=== PATIENT | female | born 1960 | race African-American/Black ===

== ENCOUNTER 2016-04-26 21:37 | Emergency (ER) | payer MEDICAID, OTHER ==
[~2016-04-26] VITALS: Ht 160 cm; Wt 54.4 kg
[~2016-04-26 21:37] MED LIST: ACYCLOVIR400 MG ORAL; ALBUTEROL SULF8.5 GM INH; AMOXICILLIN500 MG ORAL; AZITHROMYCIN500 MG ORAL; BACTRIM DS TAB1 EAC1 ORAL; BACTRIM-DS1 EA ORAL; CELEXA20 MG ORAL; CEPHALEXIN500 MG ORAL; CIPROFLOXACIN500 M2 ORAL; DOXYCYCLINE MO100 MG ORAL; GLIPIZIDE5 MG ORAL; GLUCOPHAGE500 MG ORAL; GLUCOTROL5 MG ORAL; KEFLEX500 MG ORAL; LEVAQUIN750 MG ORAL; LISINOPRIL10 MG ORAL; LISINOPRIL5 MG ORAL; METFORMIN HCL500 M1 ORAL; METRONIDAZOLE500 MG ORAL; MICONAZOLE NITR30 GM TOPIC; NORCO 5-325 TA1 EACH ORAL; PREDNISONE20 MG ORAL; PROMETHAZINE-C118 M1 ORAL; PYRIDIUM200 M1 ORAL; QUETIAPINE FUM200 MG ORAL; TRAMADOL HCL50 MG ORAL; TRAZODONE HCL100 MG ORAL; VICODIN 5-5001 EACH ORAL
--- NOTE | 2016-04-26 21:55 | Emergency Room Report ---
History of Present Illness General Chief Complaint: Dyspnea/Respdistress Source: Patient Present Illness HPI Is a 55-year-old female with a history diabetes, hypertension, asthma/COPD. Said she quit smoking 2 days ago. She presents with chief complaint of coughing congestion. Onset for last 5 days. Cough is at the sputum. She has runny nose and congestion. Has sore throat. Worse with exertion. Better with rest. Worse with smoking. She also complaining of left foot pain from her diabetes neuropathy. Said she has an ulcer. Denies any other complaint. Allergies: Coded Allergies: No Known Allergies (Unverified , 06/28/12) Patient History Past Medical History: see triage record, old chart reviewed, DM, HTN, asthma, COPD Past Surgical History: other Pertinent Family History: none Social History: Reports: smoking Now: No Immunizations: other Reviewed Nursing Documentation: PMH: Agreed, PSxH: Agreed Nursing Documentation-PMH Past Medical History: No History, Except For Hx Hypertension: Yes Hx Asthma: Yes Hx COPD: Yes Hx Diabetes: Yes - neuropathy, ulcer on toe Hx Cancer: No Hx Gastrointestinal Problems: No Hx Neurological Problems: No Review of Systems Eye: Denies: blurred vision, eye pain ENT: Denies: ear pain, nose congestion, throat swelling Respiratory: Reports: cough, shortness of breath, sputum, wheezing Cardiovascular: Denies: chest pain, palpitations Gastrointestinal: Denies: abdominal pain, diarrhea, nausea, vomiting Musculoskeletal: Denies: back pain, joint pain Skin: Denies: rash Neurological: Denies: headache, numbness Endocrine: Denies: increased thirst, increased urine Hematologic/Lymphatic: Denies: easy bruising All Other Systems: negative except mentioned in HPI Physical Exam Vital Signs Date Time Temp Pulse Resp B/P Pulse Ox O2 Delivery O2 Flow Rate FiO2 04/26/16 21:42 98.2 114 18 142/82 95 Room Air vitals with tachycardia and hypertension Sp02 EP Interpretation: reviewed, normal General Appearance: well appearing, alert, mild distress Head: normocephalic, atraumatic Eyes: bilateral eye EOMI, bilateral eye PERRL ENT: hearing grossly normal, normal pharynx Neck: full range of motion, supple, no meningismus Respiratory: chest non-tender, decreased breath sounds, accessory muscle use, wheezing Cardiovascular #1: regular rate, rhythm, no murmur Gastrointestinal: normal bowel sounds, non tender, no mass, no organomegaly, no bruit, non-distended Musculoskeletal: back normal, gait/station normal, normal range of motion, other - Left foot: She has callus on her second toe. No infection. No ulcer. Neurologic: alert, oriented x3 Psychiatric: mood/affect normal Skin: warm/dry Medical Decision Making Diagnostic Impression: Primary Impression: COPD exacerbation Additional Impressions: Diabetic neuropathy Qualified Codes: E11.42 - Type 2 diabetes mellitus with diabetic polyneuropathy Encounter for medication refill UTI (lower urinary tract infection) Cocaine abuse ER Course Patient presents with COPD exacerbation. Most likely secondary to a viral illness. Because her diabetes and smoking history, will put her on antibiotics. No evidence of sepsis, pneumonia, PE, dissection. Wheezing resolved after breathing treatment. She is out of her inhalers and a pressure medication. We'll refill it. Chest X-Ray Diagnostic Results EP Interpretation: Yes Findings: no consolidation, no effusion, no pneumothorax, no acute cardiopulmonary disease Number of Views: 1 Last Vital Signs Date Time Temp Pulse Resp B/P Pulse Ox O2 Delivery O2 Flow Rate FiO2 04/26/16 21:42 98.2 114 18 142/82 95 Room Air Status: improved Disposition: HOME, SELF-CARE Condition: Stable Scripts Azithromycin* (ZITHROMAX*) 250 Mg Tablet 250 MG ORAL DAILY, #6 TAB 0 Refills Take two tablets by mouth today, then take one tablet by mouth daily for four days Prov: ZOE CARRIZALES M.D. 04/26/16 Prednisone* (PREDNISONE*) 20 Mg Tablet 60 MG ORAL DAILY, #12 TAB Prov: ZOE CARRIZALES M.D. 04/26/16 Lisinopril* (LISINOPRIL*) 10 Mg Tablet 10 MG ORAL DAILY, #30 TAB Prov: ZOE CARRIZALESDSantino 04/26/16 Fluticasone/Salmeterol (Advair 500-50 Diskus) 1 Each Blst.w.dev 1 PUFF INH EVERY 12 HOURS, #1 EA Prov: ZOE CARRIZALES M.D. 04/26/16 Albuterol Sulfate* (ALBUTEROL SULFATE MDI*) 8.5 Gm Hfa.aer.ad 2 PUFF INH Q4H Y for cough/wheezing, #1 EA 0 Refills Prov: ZOE CARRIZALES M.D. 04/26/16 Patient Instructions: Chronic Obstructive Pulmonary Disease Exacerbation Additional Instructions: Followup with your Dr. 2 to 3 days. Return if symptom worsen. ZOE CARRIZALES M.D. Apr 26, 2016 21:55
[2016-04-26 21:58] VITALS: BP 142/82
[2016-04-26] MEDS ORDERED: Albuterol ud Inhalation HHN ONE (22:00)
[2016-04-26] MEDS ORDERED: PredniSONE 20mg tab ORAL ONE (22:00)
[2016-04-26] MEDS ORDERED: Ipratropium 0.02% Inh Soln 2.5ml UD HHN ONE (22:00)
[2016-04-26 22:57] LABS: APPEARANCE,URINE CLEAR; KETONES,URINE 1+ (NEGATIVE); LEUKOCYTE ESTERASE ,URINE 2+ (NEGATIVE); NITRITE,URINE NEGATIVE (NEGATIVE); PH,URINE 6 (4.5-8.0); PROTEIN,URINE 1+ (NEGATIVE); UROBILINOGEN,URINE 1 MG/DL (0.0-1.0)
[2016-04-26] MEDS ORDERED: ALBUTEROL SULF8.5 GM INH (22:57)
[2016-04-26] MEDS ORDERED: PREDNISONE20 MG ORAL (22:57)
[2016-04-26] MEDS ORDERED: ADVAIR 500-501 EACH INH (22:57)
[2016-04-26] MEDS ORDERED: AZITHROMYCIN250 MG ORAL (22:57)
[2016-04-26] MEDS ORDERED: LISINOPRIL10 MG ORAL (22:57)
[2016-04-26 23:10] LABS: BACTERIA,URINE FEW /HPF; SQUAMOUS EPITHELIAL CELL,UR FEW /LPF (NONE/OCC)
[2016-04-26 23:21] VITALS: BP 138/76
--- NOTE | 2016-04-27 10:19 | Diagnostic Imaging Report ---
Indication: Dyspnea Comparison: 09/07/14 A single view chest radiograph was obtained. Findings: Osteopenic. Heart is normal in size. Aorta is ectatic. Lungs are clear. Impression: No acute disease
== END 2016-04-26 23:21 | disposition home or self-care (01) ==
LOC: EMR 22:23
DX: J44.1 Chronic obstructive pulmonary disease with (acute) exacerbation (principal); E11.42 Type 2 diabetes mellitus with diabetic polyneuropathy; Z76.0 Encounter for issue of repeat prescription; N39.0 Urinary tract infection, site not specified; F14.10 Cocaine abuse, uncomplicated; I10 Essential (primary) hypertension; Z87.891 Personal history of nicotine dependence
CPT/HCPCS: 71010; 80300; 81003; 94640; 94664; 99284

== ENCOUNTER 2016-08-16 21:56 | Emergency (ER) | payer OTHER ==
[~2016-08-16] VITALS: Ht 157.5 cm; Wt 63.5 kg
[~2016-08-16 21:56] MED LIST changes: +ADVAIR 500-501 EACH INH; +AZITHROMYCIN250 MG ORAL
[2016-08-16] MEDS ORDERED: cefTRIAXone 1 GM in NS 55 ML IV ONE (22:15)
[2016-08-16] MEDS ORDERED: Albuterol ud Inhalation HHN ONE (22:15)
[2016-08-16] MEDS ORDERED: Solu-MEDROL 125mg Inj IVP ONE (22:15)
[2016-08-16] MEDS ORDERED: Ipratropium 0.02% Inh Soln 2.5ml UD HHN ONE (22:15)
[2016-08-16 22:38] LABS: BASOPHILS % (AUTO) 1.4 % (0.0-2.0); EOSINOPHILS % (AUTO) 1.1 % (0.0-3.0); MEAN CORPUSCULAR HEMOGLOBIN 30.1 PG (27.0-31.0); MEAN CORPUSCULAR HGB CONC 34.1 G/DL (32.0-36.0); MEAN CORPUSCULAR VOLUME 88 FL (80-99); MEAN PLATELET VOLUME 9.1 FL (6.5-10.1); MONOCYTES % (AUTO) 9.6 % (1.0-10.0); PLATELET COUNT 223 K/UL (150-450); RED BLOOD COUNT 5.34 M/UL (4.20-5.40); WHITE BLOOD COUNT 7.5 K/UL (4.8-10.8)
[2016-08-16 22:54] LABS: APPEARANCE,URINE CLEAR; KETONES,URINE 1+ (NEGATIVE); LEUKOCYTE ESTERASE ,URINE 1+ (NEGATIVE); NITRITE,URINE NEGATIVE (NEGATIVE); PH,URINE 5 (4.5-8.0); PROTEIN,URINE 2+ (NEGATIVE); UROBILINOGEN,URINE 1 MG/DL (0.0-1.0)
[2016-08-16 22:58] LABS: ALANINE AMINOTRANSFERASE 13 U/L (3-33); ALBUMIN/GLOBULIN RATIO 1.3 (1.0-2.7); ANION GAP 16 (5-15); ASPARTATE AMINO TRANSFERASE 15 U/L (5-40); CALCIUM 9.4 mg/dL (8.6-10.2); CARBON DIOXIDE 24 mEQ/L (20-30); CHLORIDE 102 mEQ/L (98-107); CREATININE 0.7 mg/dL (0.5-0.9); GLOMERULAR FILTRATION RATE > 60 mL/min (>60); HEMOLYSIS 5; POTASSIUM 3.7 mEQ/L (3.4-4.9); SODIUM 142 mEQ/L (135-145); TOTAL PROTEIN 6.9 g/dL (6.6-8.7)
[2016-08-16 23:02] LABS: BACTERIA,URINE MODERATE /HPF; SQUAMOUS EPITHELIAL CELL,UR MANY /LPF (NONE/OCC)
--- NOTE | 2016-08-16 23:14 | Emergency Room Report ---
History of Present Illness General Chief Complaint: Dyspnea/Respdistress Source: Patient Present Illness HPI Is a 55 year female with a history of COPD. She still smokes. Also history of cocaine abuse and smoking. She presents with chief complaint of shortness of breath and coughing. Also having subjective fever and chills. Coughing is productive of whitish and yellowish sputum. Onset for last week. Out of her albuterol. Hard time breathing. She is here with her brother who is also. No nausea no vomiting. No chest pain. Worse with exertion. Worse with coughing. Worse with lying flat. Allergies: Coded Allergies: No Known Allergies (Unverified , 06/28/12) Patient History Past Medical History: see triage record, old chart reviewed, COPD Past Surgical History: none Pertinent Family History: none Social History: Reports: drug use, smoking Last Menstrual Period: UNK Now: No Immunizations: other Reviewed Nursing Documentation: PMH: Agreed, PSxH: Agreed Nursing Documentation-PMH Past Medical History: No History, Except For Hx Hypertension: Yes Hx Asthma: Yes Hx COPD: Yes Hx Diabetes: Yes - neuropathy, ulcer on toe Hx Cancer: No Hx Gastrointestinal Problems: No Hx Neurological Problems: No Review of Systems Constitutional: Reports: chills, fever Eye: Denies: blurred vision, eye pain ENT: Denies: ear pain, nose congestion, throat swelling Respiratory: Reports: RUEDA, cough, shortness of breath, sputum, wheezing Cardiovascular: Denies: chest pain, palpitations Gastrointestinal: Denies: abdominal pain, diarrhea, nausea, vomiting Musculoskeletal: Denies: back pain, joint pain Skin: Denies: rash Neurological: Denies: headache, numbness Endocrine: Denies: increased thirst, increased urine Hematologic/Lymphatic: Denies: easy bruising All Other Systems: negative except mentioned in HPI Physical Exam Vital Signs Date Time Temp Pulse Resp B/P Pulse Ox O2 Delivery O2 Flow Rate FiO2 08/16/16 22:05 98.4 107 37 139/101 60 Room Air 08/16/16 22:20 21 vitals with tachycardia and hypoxia. Sp02 EP Interpretation: reviewed, abnormal General Appearance: well appearing, alert, mild distress Head: normocephalic, atraumatic Eyes: bilateral eye EOMI, bilateral eye PERRL ENT: hearing grossly normal, normal pharynx Neck: full range of motion, supple, no meningismus Respiratory: chest non-tender, accessory muscle use, rhonchi, wheezing Cardiovascular #1: regular rate, rhythm, no murmur Gastrointestinal: normal bowel sounds, non tender, no mass, no organomegaly, no bruit, non-distended Musculoskeletal: back normal, gait/station normal, normal range of motion Neurologic: alert, oriented x3 Psychiatric: mood/affect normal Skin: warm/dry Medical Decision Making Diagnostic Impression: Primary Impression: COPD exacerbation Additional Impressions: UTI (lower urinary tract infection) Cocaine abuse Respiratory distress ER Course Patient presents with COPD exacerbation. This was worsened by smoking cocaine and smoking. Her situation is now 96-100% on room air after breathing treatment. No longer wheezing. Chest x-ray unremarkable. We'll discharge home. No evidence of ACS, PE, dissection to name a few. Her oxygenation was never 60% because it was not tracking very well. When I saw her it was 88-90% on room air. Lab Results Impression labs unremarkable Rhythm Strip Diag. Results Rhythm Strip Time: 23:22 EP Interpretation: yes Rate: 100 Rhythm: NSR, no PVC's, no ectopy Chest X-Ray Diagnostic Results Chest X-Ray Ordered: Yes # of Views/Limited/Complete: 1 View Interpretation: no consolidation, no effusion, no pneumothorax, other - atelectasis Indication: Shortness of Breath Impression: No acute disease Date Electronically Signed: Aug 16, 2016 Time Electronically Signed: 23:22 Interpreting ER Physician: Virgil Martins MD Last Vital Signs Date Time Temp Pulse Resp B/P Pulse Ox O2 Delivery O2 Flow Rate FiO2 08/16/16 22:34 97 21 98 Room Air 21 08/16/16 22:05 98.4 139/101 Status: improved Disposition: HOME, SELF-CARE Condition: Stable Scripts Azithromycin* (ZITHROMAX*) 250 Mg Tablet 250 MG ORAL DAILY, #6 TAB 0 Refills Take two tablets by mouth today, then take one tablet by mouth daily for four days Prov: VIRGIL MARTINS M.D. 08/16/16 Prednisone* (PREDNISONE*) 20 Mg Tablet 60 MG ORAL DAILY, #15 TAB Prov: VIRGIL MARTINS M.D. 08/16/16 Albuterol Sulfate* (ALBUTEROL SULFATE MDI*) 8.5 Gm Hfa.aer.ad 2 PUFF INH Q4H Y for cough/wheezing, #1 EA 0 Refills Prov: VIRGIL MARTINS M.D. 08/16/16 Referrals: NON PHYSICIAN (PCP) Patient Instructions: Chronic Obstructive Pulmonary Disease Exacerbation Additional Instructions: Abstain from drugs and alcohol. Stop smoking. Followup with your Dr. in 2 to 3 days. Return if worse. VIRGIL MARTINS M.D. Aug 16, 2016 23:14
[2016-08-16] MEDS ORDERED: ALBUTEROL SULF8.5 GM INH (23:24)
[2016-08-16] MEDS ORDERED: PREDNISONE20 MG ORAL (23:24)
[2016-08-16] MEDS ORDERED: AZITHROMYCIN250 MG ORAL (23:24)
[2016-08-16 23:45] VITALS: BP 139/101
--- NOTE | 2016-08-17 10:06 | Diagnostic Imaging Report ---
Indication: Shortness of breath Technique: XRAY CHEST 1 V Comparison: 04/26/16 Findings: Cardiomediastinal silhouette is stable. Linear opacities are seen of the right mid and bilateral lower lung hooker are degenerative changes of the spine are present. Impression: Linear opacities of the right mid and bilateral lower lung hooker probably representing atelectasis. Clinical correlation/followup recommended.
== END 2016-08-16 23:45 | disposition home or self-care (01) ==
LOC: EMR 22:20
DX: J44.1 Chronic obstructive pulmonary disease with (acute) exacerbation (principal); N39.0 Urinary tract infection, site not specified; F14.10 Cocaine abuse, uncomplicated; I10 Essential (primary) hypertension; E11.40 Type 2 diabetes mellitus with diabetic neuropathy, unspecified
CPT/HCPCS: 36415; 71010; 80053; 81003; 83605; 85025; 87086; 94640; 94664; 96374; 96375; 99284; J0696; J2930

== ENCOUNTER 2017-06-03 10:29 | Emergency (ER) | payer OTHER ==
[~2017-06-03] VITALS: Ht 157.5 cm; Wt 52.2 kg
[2017-06-03] MEDS ORDERED: Albuterol ud Inhalation HHN SCH (11:00)
[2017-06-03] MEDS ORDERED: Ipratropium 0.02% Inh Soln 2.5ml UD HHN SCH (11:00)
[2017-06-03 11:18] VITALS: BP 142/76
[2017-06-03] MEDS ORDERED: AMOXICILLIN500 MG ORAL (11:55)
[2017-06-03] MEDS ORDERED: VENTOLIN HFA18 GM INH (11:55)
[2017-06-03] MEDS ORDERED: ADVAIR 500-501 EACH INH (11:55)
[2017-06-03] MEDS ORDERED: PREDNISONE20 MG ORAL (11:55)
[2017-06-03] MEDS ORDERED: ALBUTEROL2.5 MG/3 M HHN (11:55)
[2017-06-03 12:00] VITALS: BP 142/76
--- NOTE | 2017-06-03 14:38 | Emergency Room Report ---
History of Present Illness General Chief Complaint: Dyspnea/Respdistress Source: Patient Present Illness HPI 56-year-old female presents ED with shortness of breath. History of COPD. States she smokes. States his been worse for the last several weeks. Denies chest pain. Denies fevers or chills. Denies cough. No other aggravating relieving factors. Denies any other associated symptoms Allergies: Coded Allergies: No Known Allergies (Unverified , 06/28/12) Patient History Past Medical History: asthma, COPD Pertinent Family History: none Social History: Reports: smoking; Denies: alcohol use, drug use Now: No Immunizations: UTD Reviewed Nursing Documentation: PMH: Agreed; PSxH: Agreed Nursing Documentation-PMH Past Medical History: No History, Except For Hx Hypertension: Yes Hx Asthma: Yes Hx COPD: Yes Hx Diabetes: Yes - neuropathy, ulcer on toe Hx Cancer: No Hx Gastrointestinal Problems: No Hx Neurological Problems: No Review of Systems All Other Systems: negative except mentioned in HPI Physical Exam Vital Signs Date Time Temp Pulse Resp B/P (MAP) Pulse Ox O2 Delivery O2 Flow Rate FiO2 06/03/17 10:53 98.7 97 24 132/68 95 Room Air 98.8 06/03/17 11:28 21 Sp02 EP Interpretation: reviewed, normal General Appearance: no apparent distress, alert, GCS 15, non-toxic Head: normocephalic, atraumatic Eyes: bilateral eye normal inspection, bilateral eye PERRL ENT: hearing grossly normal, normal pharynx, no angioedema, normal voice Neck: full range of motion, supple/symm/no masses Respiratory: chest non-tender, decreased breath sounds, speaking full sentences , wheezing Cardiovascular #1: regular rate, rhythm, no edema Cardiovascular #2: 2+ carotid (R), 2+ carotid (L), 2+ radial (R), 2+ radial (L) , 2+ dorsalis pedis (R), 2+ dorsalis pedis (L) Gastrointestinal: normal bowel sounds, non tender, soft, non-distended, no guarding, no rebound Rectal: deferred Genitourinary: normal inspection, no CVA tenderness Musculoskeletal: back normal, gait/station normal, normal range of motion, non- tender Neurologic: alert, oriented x3, responsive, motor strength/tone normal, sensory intact, speech normal Psychiatric: judgement/insight normal, memory normal, mood/affect normal, no suicidal/homicidal ideation Reflexes: 3+ bicep (R), 3+ bicep (L), 3+ tricep (R), 3+ tricep (L), 3+ knee (R) , 3+ knee (L) Skin: normal color, no rash, warm/dry, well hydrated Lymphatic: no adenopathy Medical Decision Making Diagnostic Impression: Primary Impression: COPD exacerbation ER Course Hospital Course 56-year-old female presents ED complaining of shortness of breath wheezing. History of COPD Differential diagnoses include: URI, bronchitis, asthma/COPD, pneumonia Clinical course Patient placed on stretcher. After initial history and physical I ordered prednisone and nebulizer treatment. Upon reassessment patient states cough and symptoms have improved. Findings consistent with bronchitis. Given history of COPD we'll prescribe antibiotics Diagnosis - COPD exacerbation Stable and discharged home with prescriptions for Rx prednisone, advair, amoxicillin, albuterol. Instructed to followup with PMD. Return to ED if symptoms recur or worsen Last Vital Signs Date Time Temp Pulse Resp B/P (MAP) Pulse Ox O2 Delivery O2 Flow Rate FiO2 06/03/17 11:49 102 22 100 Room Air 21 06/03/17 11:18 142/76 06/03/17 10:53 98.7 98.8 Status: improved Disposition: HOME, SELF-CARE Condition: Stable Scripts Amoxicillin* (AMOXIL*) 500 Mg Capsule 500 MG ORAL THREE TIMES A DAY, #21 CAP Prov: Abebe Rayo MD 06/03/17 Prednisone* (PREDNISONE*) 20 Mg Tablet 60 MG ORAL DAILY for 5 Days, #15 TAB Prov: Abebe Rayo MD 06/03/17 Fluticasone/Salmeterol (Advair 500-50 Diskus) 1 Each Blst.w.dev 1 PUFF INH EVERY 12 HOURS, #1 EA Prov: Abebe Rayo MD 06/03/17 Albuterol Sulfate (VENTOLIN HFA) 18 Gm Hfa.aer.ad 2 PUFFS INH EVERY 6 HOURS, #18 GM 0 Refills Prov: Abebe Rayo MD 06/03/17 Albuterol Sulfate* (ALBUTEROL SULFATE HHN*) 2.5 Mg/3 Ml Vial.neb 2.5 MG HHN Q4H PRN for Shortness of Breath, #25 VIAL Prov: Abebe Rayo MD 06/03/17 Referrals: NON PHYSICIAN (PCP) Patient Instructions: Chronic Obstructive Pulmonary Disease Exacerbation Abebe Rayo MD Jun 03, 2017 14:38
== END 2017-06-03 12:00 | disposition home or self-care (01) ==
LOC: EMR 11:40
DX: J44.9 Chronic obstructive pulmonary disease, unspecified (principal); I10 Essential (primary) hypertension; F17.200 Nicotine dependence, unspecified, uncomplicated; E11.40 Type 2 diabetes mellitus with diabetic neuropathy, unspecified
CPT/HCPCS: 94640; 94664; 99284; J7512

== ENCOUNTER 2017-07-02 15:55 | Emergency (ER) | payer OTHER ==
[~2017-07-02] VITALS: Ht 157.5 cm; Wt 54.4 kg
[~2017-07-02 15:55] MED LIST changes: +ALBUTEROL2.5 MG/3 M HHN; +VENTOLIN HFA18 GM INH
[2017-07-02] MEDS ORDERED: Albuterol ud Inhalation HHN ONE (16:15)
[2017-07-02] MEDS ORDERED: Albuterol/Ipratropium 3ml neb HHN ONE (16:15)
[2017-07-02] MEDS ORDERED: Lidocaine 1% MPF 10mg/ml 5ml INJ ONE (17:00)
--- NOTE | 2017-07-02 17:01 | Emergency Room Report ---
History of Present Illness General Chief Complaint: Asthma Source: Patient Present Illness HPI 56-year-old female presents to the emergency department complaining of intermittent productive cough with wheezing and exacerbation of her bronchitis 2 days. Patient reports she ran out of her albuterol treatments at home. Patient denies fevers or chills. Patient also reports vaginal discharge which was an acute onset after having unprotected intercourse with her ex-boyfriend. She reports a small swollen tender lump on the external vaginal labia. Patient denies open wounds or sores denies rash, itching or swollen tender lymph nodes. Patient denies dysuria, hematuria, urinary frequency, joint pain. She denies recent ill contacts or recent travel. Denies CP, Palpitations, LOC, AMS, dizziness, Changes in Vision, Sensation, paresthesias, or a sudden severe headache. Allergies: Coded Allergies: No Known Allergies (Unverified , 06/28/12) Patient History Past Medical History: see triage record Past Surgical History: none Pertinent Family History: none Social History: Reports: smoking Last Menstrual Period: total hysterectomy Reviewed Nursing Documentation: PMH: Agreed; PSxH: Agreed Nursing Documentation-PMH Past Medical History: No History, Except For Hx Hypertension: Yes Hx Asthma: Yes Hx COPD: Yes Hx Diabetes: Yes - neuropathy, ulcer on toe Hx Cancer: No Hx Gastrointestinal Problems: No History Of Psychiatric Problem: Yes - schizophrenia Hx Neurological Problems: No Review of Systems All Other Systems: negative except mentioned in HPI Physical Exam Vital Signs Date Time Temp Pulse Resp B/P (MAP) Pulse Ox O2 Delivery O2 Flow Rate FiO2 07/02/17 16:05 98.4 101 18 154/86 97 Room Air 98.4 07/02/17 16:27 21 Sp02 EP Interpretation: reviewed, normal General Appearance: no apparent distress, alert, GCS 15, non-toxic Head: normocephalic, atraumatic Eyes: bilateral eye normal inspection, bilateral eye PERRL ENT: hearing grossly normal, normal voice Neck: full range of motion Respiratory: chest non-tender, lungs clear, normal breath sounds, no rhonchi, no respiratory distress, no accessory muscle use, speaking full sentences, wheezing Cardiovascular #1: regular rate, rhythm, no edema, normal capillary refill Rectal: deferred Genitourinary: normal inspection, no CVA tenderness, adnexa normal, other - small carbuncle on left external labia , no obvious vaginal d/c Musculoskeletal: back normal, gait/station normal, normal range of motion, non- tender Neurologic: alert, oriented x3, responsive, motor strength/tone normal, sensory intact, speech normal, grossly normal Psychiatric: judgement/insight normal Skin: normal color, no rash, warm/dry, well hydrated Lymphatic: no adenopathy Medical Decision Making PA Attestation Dr. rosario is my supervising Physician whom patient management has been discussed with. Diagnostic Impression: Primary Impression: COPD (chronic obstructive pulmonary disease) with acute bronchitis Additional Impression: Vaginal discharge ER Course Patient is symptomatic and has a history of COPD and therefore requires antibiotic regimen. 56-year-old female presents to the emergency department complaining of intermittent productive cough with wheezing and exacerbation of her bronchitis 2 days. Patient reports she ran out of her albuterol treatments at home. Patient denies fevers or chills. Patient also reports vaginal discharge which was an acute onset after having unprotected intercourse with her ex-boyfriend. She reports a small swollen tender lump on the external vaginal labia. Patient denies open wounds or sores denies rash, itching or swollen tender lymph nodes. Patient denies dysuria, hematuria, urinary frequency, joint pain. She denies recent ill contacts or recent travel. Denies CP, Palpitations, LOC, AMS, dizziness, Changes in Vision, Sensation, paresthesias, or a sudden severe headache. Ddx considered but are not limited to URI, pneumonia, PE, strep pharyngitis, meningitis., vaginitis, G&C,. Vital signs: Pt.is afebrile VS are WNL H&PE are most consistent with bronchitis ORDERS: none required at this time, the diagnosis is clinical ED INTERVENTIONS: -Duoneb -Albuterol -Prednisone PO --Rocephin IM DISCHARGE: At this time pt. is stable for d/c to home. Will provide printed patient care instructions, and any necessary prescriptions. Care plan and follow up instructions have been discussed with the patient prior to discharge. Chest X-Ray Diagnostic Results Chest X-Ray Diagnostic Results : Chest X-Ray Ordered: Yes # of Views/Limited/Complete: 1 View Indication: Shortness of Breath EP Interpretation: Yes LORELEI Xray: Interpretation reviewed, by supervising MD, and agrees with findings. Interpretation: no consolidation, no effusion, no pneumothorax, no acute cardiopulmonary disease Impression: No acute disease Electronically Signed by: Ciera Rush PA-C Last Vital Signs Date Time Temp Pulse Resp B/P (MAP) Pulse Ox O2 Delivery O2 Flow Rate FiO2 07/02/17 16:46 80 22 100 Room Air 21 07/02/17 16:05 98.4 154/86 98.4 Disposition: HOME, SELF-CARE Condition: Stable Scripts Doxycycline Hyclate* (VIBRAMYCIN*) 100 Mg Capsule 100 MG ORAL EVERY 12 HOURS for 7 Days, #14 CAP 0 Refills Prov: Ciera RushA. 07/02/17 Levofloxacin* (LEVAQUIN*) 750 Mg Tablet 750 MG ORAL DAILY for 5 Days, #5 TAB Prov: Ciera Rush. 07/02/17 Prednisone* (PREDNISONE*) 20 Mg Tablet 40 MG ORAL DAILY, #10 TAB Prov: Ciera Rush. 07/02/17 Albuterol Sulfate* (ALBUTEROL SULFATE HHN*) 2.5 Mg/3 Ml Vial.neb 3 ML INH Q6H PRN for Shortness of Breath, #30 EA 0 Refills Prov: Ciera Rush. 07/02/17 Albuterol Sulfate* (ALBUTEROL SULFATE MDI*) 8.5 Gm Hfa.aer.ad 2 PUFF INH Q4H, #1 INH 0 Refills Prov: Ciera Rush. 07/02/17 Patient Instructions: Chronic Obstructive Pulmonary Disease Exacerbation Additional Instructions: Take medications as directed. Follow up with a Primary Care Provider in 3-5 days, even if your symptoms have resolved. --Please review list of primary care clinics, if you do not already have a primary care provider Return sooner to ED if new symptoms occur, or current symptoms become worse. - Please note that this Emergency Department Report was dictated using [employer] technology software, occasionally this can lead to erroneous entry secondary to interpretation by the dictation equipment. Ciera Rush July 02, 2017 17:01
[2017-07-02] MEDS ORDERED: ALBUTEROL2.5 MG/3 M INH (17:34)
[2017-07-02] MEDS ORDERED: PREDNISONE20 MG ORAL (17:34)
[2017-07-02] MEDS ORDERED: VIBRAMYCIN100 MG ORAL (17:34)
[2017-07-02] MEDS ORDERED: ALBUTEROL SULF8.5 GM INH (17:34)
[2017-07-02] MEDS ORDERED: LEVAQUIN750 MG ORAL (17:34)
[2017-07-02 18:09] VITALS: BP 154/86
[2017-07-02 18:11] VITALS: BP 154/86
--- NOTE | 2017-07-03 11:20 | Diagnostic Imaging Report ---
Indication: Chest pain Technique: XRAY Chest 1v Comparison: 08/16/2016 Findings: Heart size and mediastinal contours are stable and within normal limits. There is persistent linear opacities in the right mid/lower lung which may represent atelectasis or scarring. The previously described linear opacities in the left lung have resolved. No new focal airspace consolidation, pleural effusion or pneumothorax. There are degenerative changes of the spine. No acute osseous abnormality seen. IMPRESSION: Linear opacities in the right mid/lower lung similar to the prior exam may represent subsegmental atelectasis or scarring. Correlate clinically. No new focal airspace consolidation, pleural effusion or pneumothorax.
== END 2017-07-02 18:00 | disposition home or self-care (01) ==
LOC: EMR 17:42
DX: J20.9 Acute bronchitis, unspecified (principal); J44.9 Chronic obstructive pulmonary disease, unspecified; N89.8 Other specified noninflammatory disorders of vagina; I10 Essential (primary) hypertension; E11.40 Type 2 diabetes mellitus with diabetic neuropathy, unspecified; F20.9 Schizophrenia, unspecified
CPT/HCPCS: 71045; 94640; 94664; 96372; 99284; J0696; J7512; J7620

== ENCOUNTER 2017-11-23 13:49 | Emergency (ER) | payer OTHER ==
[~2017-11-23] VITALS: Ht 157.5 cm; Wt 59.0 kg
[~2017-11-23 13:49] MED LIST changes: +ALBUTEROL2.5 MG/3 M INH; +VIBRAMYCIN100 MG ORAL
--- NOTE | 2017-11-23 14:11 | Emergency Room Report ---
History of Present Illness General Chief Complaint: Dyspnea/Respdistress Source: Patient, Medical Record Present Illness HPI Patient presents with 2 problems. One is a cyst on her neck. It has gotten worse over the last few days. It is painful, burning/aching pressure, not radiating. Pain rated 10/10. No fevers, chills. The other one is a shortness of breath. She's run out of her medications for several days. She denies any productive phlegm at this time. She has a nebulizer and uses an inhaler. There is some chest discomfort, not exertional. It's been greater than 10 years for her last tetanus shot. No NVD, dysuria. No calf pain or swelling. Allergies: Coded Allergies: No Known Allergies (Unverified , 11/23/17) Patient History Past Medical History: see triage record Social History: Reports: smoking Social History Narrative came by bus Last Menstrual Period: a Reviewed Nursing Documentation: PMH: Agreed; PSxH: Agreed Nursing Documentation-PMH Past Medical History: No History, Except For Hx Hypertension: Yes Hx Asthma: Yes Hx COPD: Yes Hx Diabetes: Yes - neuropathy, ulcer on toe Hx Cancer: No Hx Gastrointestinal Problems: No Hx Neurological Problems: No Review of Systems All Other Systems: negative except mentioned in HPI Physical Exam Vital Signs Date Time Temp Pulse Resp B/P (MAP) Pulse Ox O2 Delivery O2 Flow Rate FiO2 11/23/17 13:52 98.1 96 16 143/77 97 Room Air 98.1 Sp02 EP Interpretation: reviewed, normal General Appearance: well appearing, no apparent distress, GCS 15 Head: normocephalic Eyes: bilateral eye normal inspection, bilateral eye PERRL ENT: moist mucus membranes Neck: supple, other - abscess back of neck Respiratory: respiratory distress - min, wheezing, expiration Cardiovascular #1: regular rate, rhythm Cardiovascular #2: 2+ radial (R) Gastrointestinal: normal inspection, normal bowel sounds, non tender, no mass, non-distended Musculoskeletal: back normal, gait/station normal, normal range of motion Neurologic: alert, oriented x3, grossly normal Psychiatric: anxious Skin: normal inspection, warm/dry, other - abscess back of neck - induration, fluctuance Procedures Incision and Drainage Incision and Drainage : Consent: Verbal Site: neck Blade Size: 11 I & D Procedure: betadine prep, sterile drapes applied, sterile dressing applied, gauze wick placed Wound Location: neck Wound's Depth, Shape: linear Wound Length (cm): 1 Wound Explored: contaminated - pus expressed Irrigated w/ Saline (ccs): 20 Anesthesia: Lidocaine w/ Epi Volume Anesthetic (ccs): 2 Patient Tolerated: Well Complications: None Progress After incision, partial marsupialization with excision of cyst. Pus deep to cyst and expressed and irrigated. Medical Decision Making Diagnostic Impression: Primary Impression: COPD exacerbation Additional Impression: Neck abscess ER Course Patient presents with 2 problems. One is shortness of breath which differential includes acute myocardial infarction, exacerbation of COPD, bronchitis, pneumonia amongst others. She'll be treated with breathing treatments and evaluation will be with EKG, chest x-ray and labs. The second problem is an abscess in the back of the neck. This needs to be incised and drained. In addition to that she needs oral antibiotics and tetanus. She'll be treated for pain with [place]. EKG no injury. CXR no infiltrate. Labs with slight elevation WBC. Normal CMP and troponin. Dramatic improvement with breathing treatments - no more dyspnea, calm. Incised and drained abscess - see procedure note. Patient improved. Advised need to return for drain replacement. The patient is stable for outpatient observation and treatment. Labs Test 11/23/17 14:20 11/23/17 15:15 White Blood Count 11.5 K/UL (4.8-10.8) Red Blood Count 5.22 M/UL (4.20-5.40) Hemoglobin 15.0 G/DL (12.0-16.0) Hematocrit 45.3 % (37.0-47.0) Mean Corpuscular Volume 87 FL (80-99) Mean Corpuscular Hemoglobin 28.6 PG (27.0-31.0) Mean Corpuscular Hemoglobin Concent 33.0 G/DL (32.0-36.0) Red Cell Distribution Width 11.5 % (11.6-14.8) Platelet Count 242 K/UL (150-450) Mean Platelet Volume 8.4 FL (6.5-10.1) Neutrophils (%) (Auto) 71.7 % (45.0-75.0) Lymphocytes (%) (Auto) 18.0 % (20.0-45.0) Monocytes (%) (Auto) 8.7 % (1.0-10.0) Eosinophils (%) (Auto) 0.7 % (0.0-3.0) Basophils (%) (Auto) 1.0 % (0.0-2.0) Prothrombin Time 10.7 SEC (9.30-11.50) Prothromb Time International Ratio 1.0 (0.9-1.1) Activated Partial Thromboplast Time 32 SEC (23-33) Sodium Level 138 MMOL/L (136-145) Potassium Level 3.9 MMOL/L (3.5-5.1) Chloride Level 105 MMOL/L (98-107) Carbon Dioxide Level 28 MMOL/L (21-32) Anion Gap 5 mmol/L (5-15) Blood Urea Nitrogen 13 mg/dL (7-18) Creatinine 0.7 MG/DL (0.55-1.30) Estimat Glomerular Filtration Rate > 60 mL/min (>60) Glucose Level 106 MG/DL (74-106) Calcium Level 8.8 MG/DL (8.5-10.1) Total Bilirubin 0.5 MG/DL (0.2-1.0) Aspartate Amino Transf (AST/SGOT) 12 U/L (15-37) Alanine Aminotransferase (ALT/SGPT) 16 U/L (12-78) Alkaline Phosphatase 106 U/L (46-116) Total Creatine Kinase 67 U/L (26-308) Troponin I 0.000 ng/mL (0.000-0.056) Pro-B-Type Natriuretic Peptide 54 pg/mL (0-125) Total Protein 6.8 G/DL (6.4-8.2) Albumin 3.2 G/DL (3.4-5.0) Globulin 3.6 g/dL Albumin/Globulin Ratio 0.9 (1.0-2.7) Urine Color Pale yellow Urine Appearance Clear Urine pH 6.5 (4.5-8.0) Urine Specific [place] 1.010 (1.005-1.035) Urine Protein Negative (NEGATIVE) Urine Glucose (UA) Negative (NEGATIVE) Urine Ketones 2+ (NEGATIVE) Urine Blood 3+ (NEGATIVE) Urine Nitrite Negative (NEGATIVE) Urine Bilirubin Negative (NEGATIVE) Urine Urobilinogen Normal MG/DL (0.0-1.0) Urine Leukocyte Esterase Negative (NEGATIVE) Urine RBC 15-20 /HPF (0 - 2) Urine WBC 0-2 /HPF (0 - 2) Urine Squamous Epithelial Cells Occasional /LPF Urine Bacteria Occasional /HPF (NONE) EKG Diagnostic Results Rate: normal Rhythm: NSR ST Segments: no acute changes - EMELINA Rhythm Strip Diag. Results EP Interpretation: yes Rhythm: NSR, no PVC's, no ectopy Chest X-Ray Diagnostic Results Chest X-Ray Diagnostic Results : Chest X-Ray Ordered: Yes # of Views/Limited/Complete: 1 View Indication: Shortness of Breath EP Interpretation: Yes Interpretation: no consolidation, no effusion, no pneumothorax, other - Atelectasis and scarring left Impression: Other Electronically Signed by: Electronically signed by Oliver Yuan MD Last Vital Signs Date Time Temp Pulse Resp B/P (MAP) Pulse Ox O2 Delivery O2 Flow Rate FiO2 11/23/17 16:54 98.3 11/23/17 16:51 109 23 125/80 92 Room Air 11/23/17 14:51 21 Status: improved Disposition: HOME, SELF-CARE Condition: Improved Scripts Albuterol Sulfate* (ALBUTEROL SULFATE MDI*) 8.5 Gm Hfa.aer.ad 2 PUFF INH Q6H, #1 EA 1 Refill Prov: Oliver Yuan M.D. 11/23/17 Prednisone* (PREDNISONE*) 20 Mg Tablet 40 MG ORAL DAILY, #10 TAB Prov: Oliver Yuan M.D. 11/23/17 Tramadol Hcl* (ULTRAM*) 50 Mg Tablet 50 MG ORAL Q6H PRN for For Pain, #6 TAB 0 Refills Prov: Oliver Yuan M.D. 11/23/17 Bacitracin (Bacitracin) 28.4 Gm Oint...g. 1 APPLIC TOPIC BID, #10 GM Prov: Oliver Yuan M.D. 11/23/17 Trimethoprim/Sulfamethoxazole 160/800* (BACTRIM DS TABLET*) 1 Each Tablet 1 TAB ORAL Q12H, #14 TAB 0 Refills Prov: Oliver Yuan M.D. 11/23/17 Oliver Yuan M.D. Nov 23, 2017 14:10
[2017-11-23 14:15] VITALS: BP 143/77
[2017-11-23] MEDS ORDERED: Solu-MEDROL 125mg Inj IVP ONE (14:15)
[2017-11-23] MEDS ORDERED: Albuterol ud Inhalation HHN ONE (14:15)
[2017-11-23] MEDS ORDERED: Norco 5mg/325mg tab ORAL ONE (14:15)
[2017-11-23] MEDS ORDERED: Lidocaine 1% 10mg/ml/Epi 0.005mg/ml 30ml vial INJ ONE (14:15)
[2017-11-23] MEDS ORDERED: Tetanus/Diptheria/Pertussis Vaccine 0.5ml Syr IM ONE (14:15)
[2017-11-23] MEDS ORDERED: LET 3ml Soln TOPIC ONE (14:15)
[2017-11-23] MEDS ORDERED: Ipratropium 0.02% Inh Soln 2.5ml UD HHN ONE (14:15)
[2017-11-23] MEDS ORDERED: Bactrim-DS 1 tab ORAL ONE (14:30)
[2017-11-23 14:49] LABS: EOSINOPHILS % (AUTO) 0.7 % (0.0-3.0); HEMATOCRIT 45.3 % (37.0-47.0); MEAN CORPUSCULAR VOLUME 87 FL (80-99); MONOCYTES % (AUTO) 8.7 % (1.0-10.0); NEUTROPHILS % (AUTO) 71.7 % (45.0-75.0); PLATELET COUNT 242 K/UL (150-450); RED BLOOD COUNT 5.22 M/UL (4.20-5.40); RED CELL DISTRIBUTION WIDTH 11.5 % (11.6-14.8); WHITE BLOOD COUNT 11.5 K/UL (4.8-10.8)
[2017-11-23 15:00] LABS: ANION GAP 5 mmol/L (5-15); BLOOD UREA NITROGEN 13 mg/dL (7-18); CALCIUM 8.8 MG/DL (8.5-10.1); CARBON DIOXIDE 28 MMOL/L (21-32); CHLORIDE 105 MMOL/L (98-107); CREATININE 0.7 MG/DL (0.55-1.30); POTASSIUM 3.9 MMOL/L (3.5-5.1); SODIUM 138 MMOL/L (136-145)
--- NOTE | 2017-11-23 15:03 | Diagnostic Imaging Report ---
Indication: Dyspnea Technique: XRAY Chest 1v Comparison: 07/02/2017 Findings: Heart size and mediastinal contours are within normal limits for AP technique and stable compared to the prior exam. There is no focal consolidation, pneumothorax or pleural effusion. There are degenerative changes in the spine. Osseous structures demonstrate no acute abnormality. Impression: No radiographic evidence of acute cardiopulmonary disease.
[2017-11-23 15:11] LABS: ALANINE AMINOTRANSFERASE 16 U/L (12-78); ALBUMIN 3.2 G/DL (3.4-5.0); ALBUMIN/GLOBULIN RATIO 0.9 (1.0-2.7); ALKALINE PHOSPHATASE 106 U/L (46-116); ASPARTATE AMINO TRANSFERASE 12 U/L (15-37); BILIRUBIN,TOTAL 0.5 MG/DL (0.2-1.0); CREATINE KINASE 67 U/L (26-308)
[2017-11-23 16:06] LABS: APPEARANCE,URINE CLEAR; BILIRUBIN, URINE NEGATIVE (NEGATIVE); COLOR,URINE PALE YELLOW; GLUCOSE, URINE (UA) NEGATIVE (NEGATIVE); KETONES,URINE 2+ (NEGATIVE); LEUKOCYTE ESTERASE ,URINE NEGATIVE (NEGATIVE); NITRITE,URINE NEGATIVE (NEGATIVE); PH,URINE 6.5 (4.5-8.0); PROTEIN,URINE NEGATIVE (NEGATIVE); UROBILINOGEN,URINE NORMAL MG/DL (0.0-1.0)
[2017-11-23 16:33] VITALS: BP 125/80
[2017-11-23] MEDS ORDERED: TRAMADOL HCL50 MG ORAL (16:42)
[2017-11-23] MEDS ORDERED: ALBUTEROL SULF8.5 GM INH (16:42)
[2017-11-23] MEDS ORDERED: BACITRACIN15 GM TOPIC (16:42)
[2017-11-23] MEDS ORDERED: BACTRIM DS TAB1 EAC1 ORAL (16:42)
[2017-11-23] MEDS ORDERED: PREDNISONE20 MG ORAL (16:42)
[2017-11-23 16:51] VITALS: BP 125/80
[2017-11-23] MEDS ORDERED: Acetaminophen 500mg (ES) tab ORAL ONE (17:00)
--- NOTE | 2017-11-24 15:52 | Cardiology Report ---
APPROVED REPORT EKG Measurement Heart [id number] Normal sinus rhythm Right atrial enlargement Low voltage QRS Possible Inferior infarct, age undetermined Abnormal ECG
== END 2017-11-23 16:51 | disposition home or self-care (01) ==
LOC: EMR 15:13
DX: J44.1 Chronic obstructive pulmonary disease with (acute) exacerbation (principal); L02.11 Cutaneous abscess of neck; I10 Essential (primary) hypertension
CPT/HCPCS: 10060; 36415; 71045; 80053; 81003; 82550; 83880; 84484; 85025; 85610; 85730; 90471; 90715; 93005; 94640; 94664; 96361; 96372; 96374; 99284; J2930

== ENCOUNTER 2018-01-26 23:31 | Emergency (ER) | payer OTHER ==
[~2018-01-26] VITALS: Ht 157.5 cm; Wt 56.2 kg
[~2018-01-26 23:31] MED LIST changes: +BACITRACIN15 GM TOPIC
[2018-01-26] MEDS ORDERED: Albuterol/Ipratropium 3ml neb HHN ONE (23:45)
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
[2018-01-27] MEDS ORDERED: Ketorolac 60mg Inj IM ONE
[2018-01-27 00:05] LABS: BILIRUBIN, URINE 1+ (NEGATIVE); GLUCOSE, URINE (UA) 3+ (NEGATIVE); KETONES,URINE 2+ (NEGATIVE); LEUKOCYTE ESTERASE ,URINE 1+ (NEGATIVE); NITRITE,URINE NEGATIVE (NEGATIVE); PH,URINE 6 (4.5-8.0); PROTEIN,URINE 3+ (NEGATIVE); UROBILINOGEN,URINE 4 MG/DL (0.0-1.0)
[2018-01-27 00:07] VITALS: BP 147/88
[2018-01-27 00:15] LABS: APPEARANCE,URINE CLEAR; COLOR,URINE YELLOW
[2018-01-27] MEDS ORDERED: ALBUTEROL SULF8.5 GM INH (01:22)
[2018-01-27] MEDS ORDERED: IBUPROFEN600 MG ORAL (01:22)
[2018-01-27 01:54] VITALS: BP 147/75
--- NOTE | 2018-01-27 11:48 | Diagnostic Imaging Report ---
Indication: Knee Pain 3 views of the left knee were obtained. Findings: No acute fracture, malalignment, or joint effusion are identified. Joint space is relatively well-maintained. Impression: Negative for acute injury
--- NOTE | 2018-01-27 11:48 | Diagnostic Imaging Report ---
Indication: Knee pain/trauma 3 views of the right knee were obtained. Findings: No acute fracture, malalignment, or joint effusion are identified. Joint space is relatively well-maintained. Impression: Negative for acute findings.
--- NOTE | 2018-01-27 11:49 | Diagnostic Imaging Report ---
Indication: Right shoulder pain Findings: 3 views of the right shoulder were obtained. No acute fractures, malalignment, erosions or periostitis are identified. Soft tissues are unremarkable. Impression: Negative for acute injury
== END 2018-01-27 02:21 | disposition home or self-care (01) ==
LOC: EMR 23:54
DX: M25.511 Pain in right shoulder (principal); M79.661 Pain in right lower leg; M79.662 Pain in left lower leg; I10 Essential (primary) hypertension; J45.909 Unspecified asthma, uncomplicated; J44.9 Chronic obstructive pulmonary disease, unspecified; E11.9 Type 2 diabetes mellitus without complications; G62.9 Polyneuropathy, unspecified; L97.509 Non-pressure chronic ulcer of other part of unspecified foot with unspecified severity; F17.200 Nicotine dependence, unspecified, uncomplicated; V13.4XXA Pedal cycle driver injured in collision with car, pick-up truck or van in traffic accident, initial encounter; Y93.55 Activity, bike riding; Y92.488 Other paved roadways as the place of occurrence of the external cause
CPT/HCPCS: 80307; 81003; 94640; 94664; 96372; 99284; J7620